=== PATIENT | female | born 1980 | race Caucasian/White ===

== ENCOUNTER 2024-03-04 01:05 | Emergency (ER) | payer BC, SELFPAY ==
[2024-03-04 01:21] VITALS: BP 142/90; PULSE 107; RESP 18; TEMP 37; O2SAT 96; BMI 40.4
--- NOTE | 2024-03-04 02:14 | ED_ITS ---
HPI - General Adult General Chief complaint: Back Injury/Pain Stated complaint: back pain Time Seen by Provider: 03/04/24 02:00 Source: patient Mode of arrival: ambulatory Limitations: no limitations History of Present Illness HPI narrative: Right posterior lower rib pain for the past day, worsening tonight. No hematuria. No fevers or trauma. Had pneumonia 6 weeks ago, still coughing. Was coughing tonight and pain worsened. Think she may ?slipped a rib out of place?. No prior history of rib fracture. No prior history of DVT or PE. Not anticoagulated. Pain radiates to the right upper quadrant somewhat. Does not radiate to the lower abdomen. No pelvic pain. Nauseated but no vomiting. Does not feel short of breath. No hemoptysis. She was treated for her pneumonia and is still using albuterol p.r.n.. Tried a small amount of Tylenol probably 200 mg at about 6 hours ago, no significant improvement in pain. Had 400 mg of ibuprofen 10 hours ago. Past medical history benign per her report, no major long-term health problems. Last menstrual period was about 10 days ago. Allergy to sertraline, no prescription medications. Nonsmoker. ROS is notable for the respiratory and flank symptoms as above, otherwise denies times 12 systems. Related Data Allergies Allergy/AdvReac Type Severity Reaction Status Date / Time sertraline (From Zoloft) Allergy Intermediate Verified 03/04/24 01:29 [facility] Social History Non-prescribed substance use: denies use service: No Exam Const: Vital Signs, click to edit/add: Vital Signs - 24 hr 03/04/24 01:21 03/04/24 04:54 Temperature 98.6 F Pulse Rate [Left P ulse Oximeter] 107 H 85 Respiratory Rate 18 16 Blood Pressure [Ri ght Upper Arm] 142/90 H 162/85 H Pulse Oximetry 96 98 Oxygen Delivery Me thod Room Air Room Air Documenting provider has reviewed patient's vital signs: yes Common normals: alert General appearance: well kempt Other: Mildly distress from pain. Friendly and cooperative. Excellent historian. Appears well nourished and well hydrated HENMT: Common normals: normocephalic Head and scalp: normocephalic Face and sinus: normal facial exam Mouth: oral and palatal mucosa normal Throat: posterior oropharynx normal Eye: Common normals: conjunctivae normal General eye: normal appearance of both eyes Conjunctiva: conjunctiva(e) normal Neck & C-Spine: Common normals: full ROM and no lymphadenopathy Chest: Common normals: inspection of chest normal and palpation of chest normal Resp: Common normals: normal respiratory effort, no use of accessory muscles and clear to auscultation bilaterally Effort & inspection: able to speak in complete sentences Auscultation: clear to auscultation bilaterally Cardio: Common normals: regular rate, regular rhythm, S1 normal heart sound, S2 normal heart sound and no murmurs Rate: regular rate Rhythm: regular rhythm Heart sounds: S1 normal and S2 normal GI: Common normals: Normal to inspection, nondistended, normoactive bowel sounds present, soft to palpation, no hepatosplenomegaly and no masses Palpation: soft and no hepatosplenomegaly Other: Mildly diffusely tender but own because it makes the pain radiate to the back. : Other: Positive right-sided CVA tenderness. No rash. Extremity: Common normals: normal to inspection, normal capillary refill and no pedal edema Neuro: Sensorium/orientation: alert Speech: speech normal Gait (neuro): normal gait Motor exam: no movement abnormalities noted Psych: Appearance: well kempt Attitude: engaged Activity/motor behavior: appropriate eye contact Insight: insight good Judgement: judgment good Skin: Common normals: no rashes or lesions noted General skin exam: no rashes or lesions noted Course Course ED Course: 44-year-old female with right posterior lower rib pain suspicious for kidney stone. Differential diagnosis also including pulmonary embolism, pleural effusion, shingles, musculoskeletal etiology, colitis, gallstone, pancreatitis, amongst many others. Dramatic presentation mostly suspicious for kidney stone. Recommend urinalysis, test. Loss obtain intra-abdominal labs, troponin and D-dimer. Toradol, oxycodone and Zofran will be given. If blood in urine, will move in to CT without contrast. Await findings and clinical response. Reevaluation(s) Time of Reevaluation #1: 05:00 Reevaluation #1: Patient did have quite a bit of improvement of her pain with the oxycodone and Toradol. I reviewed all of her lab findings with her. Everything is quite reassuring. I suspect this is either muscular strain or a little bit of pleurisy. She has a bit of fatty liver, informed of this in her discharge instructions also. Remainder of the labs are consistent with some mild fatty liver but otherwise reassuring. No signs of pulmonary embolism, acute coronary syndrome, nephrolithiasis, biliary obstruction, bowel obstruction, acute spinous process, amongst others. Counseled patient on Tylenol, Toradol and Flexeril. Prescriptions for Toradol and Flexeril given. Alarm symptoms reviewed that would warrant ED presentation. Primary care follow-up if not improving in 7-10 days. She verbalizes understanding and agreement. Written instructions provided. Vital Signs Vital signs: Initial Vital Signs Temperature 98.6 F 03/04/24 01:21 Temperature Source Temporal Artery Scan 03/04/24 01:21 Pulse Rate 107 H 03/04/24 01:21 Pulse Rhythm Regular 03/04/24 01:21 Respiratory Rate 18 03/04/24 01:21 Blood Pressure 142/90 H 03/04/24 01:21 Blood Pressure Mean 107 H 03/04/24 01:21 Blood Pressure Position Sitting 03/04/24 01:21 Pulse Oximetry 96 03/04/24 01:21 Oxygen Delivery Method Room Air 03/04/24 01:21 Vital Signs Temperature 98.6 F 03/04/24 01:21 Pulse Rate 107 H 03/04/24 01:21 Respiratory Rate 18 03/04/24 01:21 Blood Pressure 142/90 H 03/04/24 01:21 Pulse Oximetry 96 03/04/24 01:21 Oxygen Delivery Method Room Air 03/04/24 01:21 Temperature 98.6 F 03/04/24 01:21 Pulse Rate 85 03/04/24 04:54 Respiratory Rate 16 03/04/24 04:54 Blood Pressure 162/85 H 03/04/24 04:54 Pulse Oximetry 98 03/04/24 04:54 Oxygen Delivery Method Room Air 03/04/24 04:54 Medications Administered Medications: Discontinued Medications Generic Name Dose Route Start Last Admin Trade Name Freq PRN Reason Stop Dose Admin Ketorolac Tromethamine 15 mg 03/04/24 02:12 03/04/24 02:40 Ketorolac 15 Mg/Ml Inj IVP 03/04/24 02:13 15 mg ONCE ONE Administration Ondansetron HCl 4 mg 03/04/24 02:12 03/04/24 02:40 Ondansetron 2 Mg/Ml Inj IVP 03/04/24 02:13 4 mg ONCE ONE Administration Oxycodone HCl 5 mg 03/04/24 02:12 03/04/24 02:40 Oxycodone 5 Mg Tablet PO 03/04/24 02:13 5 mg ONCE ONE Administration Medical Decision Making Lab Data Lab results reviewed: Yes I reviewed the patient's lab results Lab results narrative: Labs pretty reassuring. LFTs mildly elevated consistent with fatty liver pattern, not an obstructive pattern. No significant leukocytosis. D-dimer not elevated. No hematuria or signs of urine infection. Labs: Lab Results 03/04/24 03/04/24 03/04/24 Range/Units 02:12 02:40 03:00 WBC 9.81 (4.50-11.00) K/uL RBC 4.74 (4.00-5.20) m/uL Hgb 15.0 (12.0-16.0) gm/dL Hct 45.7 (33.0-51.0) % MCV 96 (80-100) fL MCH 32 (26-34) pg MCHC 33 (32-36) gm/dL RDW Coeff of [place] 13.2 (11.5-15.5) % Plt Count 236 (140-440) K/uL Neut % (Auto) 76.8 H (42.0-72.0) % Lymph % (Auto) 17.2 L (20-44) % Garza % (Auto) 4.4 (0.0-11.0) % Eos % (Auto) 1.1 (0.0-7.0) % Baso % (Auto) 0.4 (0.0-3.0) % Neut # (Auto) 7.50 H (1.7-7.0) K/uL Lymph # (Auto) 1.70 (0.90-2.90) K/uL Garza # (Auto) 0.40 (0.00-0.90) K/UL Eos # (Auto) 0.11 (0.00-0.50) K/uL Baso # (Auto) 0.04 (0.00-0.30) K/uL Abs Immat Gran (auto) 0.01 (0.00-0.30) K/uL Imm/Tot Granulo (auto) 0.1 % D-Dimer Quant (PE/DVT) 0.41 (0.00-0.50) ug/ml Sodium 139 (135-149) mmol/L Potassium 4.2 (3.6-5.1) mmol/L Chloride 107 (96-114) mmol/L Carbon Dioxide 25 (20-32) mmol/L Anion Gap 7 (7-15) mEq/L BUN 7 (5-24) mg/dL Creatinine 0.5 (0.5-1.5) mg/dL Estimated Creat Clear 209.91 Estimated GFR 120 ml/min Glucose 129 H (60-115) mg/dL Lactate 1.4 (0.5-1.9) mmol/L Calcium 9.2 (8.4-10.6) mg/dL Total Bilirubin 0.4 (0.1-1.5) mg/dL AST 79 H (12-35) U/L ALT 94 H (4-35) U/L Alkaline Phosphatase 81 (40-150) U/L Total Protein 7.2 (6.0-8.3) g/dL Albumin 4.2 (3.3-5.0) g/dL Lipase 110 (23-300) U/L Urine Color Yellow (Yellow) Urine Appearance Cloudy A (Clear) Urine pH 5.5 (5.0-8.5) Ur Specific [place] 1.015 (1.000-1.030) Urine Protein Negative (Negative) Urine Glucose (UA) Negative (Negative) Urine Ketones Negative (Negative) Urine Blood Negative (Negative) Urine Nitrite Negative (Negative) Urine Bilirubin Negative (Negative) Urine Urobilinogen 0.2 (0.2-1.0) Ur Leukocyte Esterase Negative (Negative) Urine RBC 0-2 (0-2) Urine WBC 0-2 (0-5) Ur Squamous Epith Cells Moderate A (None-Few) Urine Bacteria Moderate A (None) Hyaline Casts Few (None-Few) Urine HCG, Qual Negative (Negative) POC Troponin I 0.00 L (0.01-0.04) ng/ml Imaging Data CT Chest/Ab/Pelvis: Attestation: I have reviewed the pertinent imaging results. My impression: Slight fatty liver but no other abnormalities. Radiologist's impression: FINDINGS: CHEST: Heart size normal. No mediastinal or hilar adenopathy or mass. No pericardial effusion. Minimal patchy ground-glass with spared intervening areas normal parenchyma in a so-called mosaic attenuation pattern. This a nonspecific finding and has multiple possible potential causes. Generally, this finding is most due to small airway disease, edema or an inflammatory process. There is no focal consolidation, infiltrate or mass. No pleural effusion or pneumothorax. ABDOMEN AND PELVIS: LIVER/BILIARY SYSTEM:Mildly prominent fatty infiltrated liver. No focal mass. Normal-appearing gallbladder.No biliary ductal dilation ADRENALS: Normal KIDNEYS, URETERS and BLADDER:The kidneys appear normal. No visible mass, calculus or hydronephrosis. The ureters and bladder as visualized appear normal. SPLEEN:Normal appearance. PANCREAS: Appears normal. RETROPERITONEUM and MESENTERY: There is no mass, adenopathy or aortic aneurysm. GASTROINTESTINAL SYSTEM: There is no evidence of diverticulitis, colitis, or mechanical obstruction. The small bowel as visualized appears normal.The appendix is not visualized but there no secondary findings of appendicitis. PELVIS: Prominent endometrium. This measures about 13 millimeters. This may be normal in a premenopausal patient without abnormal bleeding. This is especially true of the patient is in the late proliferative phase of her menstrual cycle. Follow-up as clinically appropriate. No adnexal mass.. OSSEOUS STRUCTURES and ABDOMINAL WALL: There is an age-appropriate appearance of the osseous structures.No significant abdominal wall defect. OTHER: No free fluid or free air. IMPRESSION: 1. CHEST: Minimal patchy ground-glass in a mosaic attenuation pattern. Please review the comments regarding this pattern. There is no focal consolidation, infiltrate, mass, pleural effusion or pneumothorax. 2. ABDOMEN: Mildly prominent fatty infiltrated liver. The appendix is not visualized though there are no secondary findings of appendicitis on this exam. No acute appearing finding in the abdomen 3. PELVIS: Prominent endometrium measuring about 13 millimeters. This may be normal in a premenopausal patient without abnormal bleeding, especially in the late proliferative phase of menstrual cycle. Follow-up as clinically appropriate. No adnexal mass. No free fluid. Please note that all CT scans at this facility use dose modulation, iterative reconstruction, and/or weight-based dosing when appropriate to reduce radiation dose to as low as reasonably achievable. Dictated by Francois Lane MD @ 03/04/2024 4:57:48 AM Discharge Plan Discharge Clinical Impression: Muscle strain of chest wall Patient Disposition: Home w/ Parent or Adult Condition: Improved Instructions: Chest Wall Pain (ED) Additional Instructions: As we discussed, thankfully there were no dangerous reasons for your rib pain found. No signs of a blood clot, heart attack, kidney stone, kidney infection, gallstone, pancreatitis or other abnormality. CT shows a little bit of fatty infiltration of the liver which is not uncommon. I would recommend that you have your liver enzymes recheck once a year by your primary care doctor but no interventions are needed at this time. If you would like to work on cutting out carbohydrates and increasing your exercise this would ultimately reduce your risk of developing liver disease later in life. Blood work was very reassuring as well except the slight elevation in liver enzymes but not consistent with an obstructive, dangerous process. I recommend Tylenol 1000 mg every 6 hours for the pain. I have also given her prescription for Toradol, a common anti-inflammatory pain medicine. Use this up to every 6 hours. I would recommend automatically taking the Toradol for the next 2-3 days and then weaving in the Tylenol if your pain is not controlled. For more severe pain, and especially at night I have prescribed a muscle relaxant known as cyclobenzaprine. A full tablet will likely be too strong for you during the day, consider a half tablet if needed. Half to full tablet at night if the pain is more severe and he cannot sleep. Likely heat is more helpful than ice at this stage. Muscle rubs and topical patches are absolutely safe to use as well. If you still have symptoms in another 7-10 days, I would recommend primary care follow-up to discuss physical therapy and other interventions. Avoid heavy lifting and will prolong standing until you are feeling better. But technically you are cleared to return to work and all typical duties. Activity Level: Activity as Tolerated Discharge Diet: Regular Follow Up/Referrals: Ludy Diana MD [Referring] - Stand Alone Forms: Pricing Assistant Info Instructions
[2024-03-04] MEDS: OXYCODONE 5 MG TABLET PO (02:40)
[2024-03-04] MEDS: KETOROLAC 15 MG/ML inj IVP (02:40)
[2024-03-04] MEDS: ONDANSETRON 2 MG/ML inj 4 MG IVP (02:40)
[2024-03-04 02:50] LABS: Lactate* 1.4 mmol/L (0.5-1.9)
[2024-03-04 02:53] LABS: Basophils Absolute Auto 0.04 K/uL (0.00-0.30); Basophils Percent Auto 0.4 % (0.0-3.0); Eosinophils Absolute Auto 0.11 K/uL (0.00-0.50); Eosinophils Percent Auto 1.1 % (0.0-7.0); Hematocrit 45.7 % (33.0-51.0); Immature Granulocytes Abs Auto 0.01 K/uL (0.00-0.30); Immature Granulocytes Pct Auto 0.1 %; Lymphocytes Percent Auto 17.2 % (20-44); Mean Corpuscular HGB Conc 33 gm/dL (32-36); Mean Corpuscular Hemoglobin 32 pg (26-34); Mean Corpuscular Volume 96 fL (80-100); Monocytes Percent Auto 4.4 % (0.0-11.0); Neutrophils Percent Auto 76.8 % (42.0-72.0); Platelet Count* 236 K/uL (140-440); RDW Coefficient of Variation % 13.2 % (11.5-15.5); Red Blood Count 4.74 m/uL (4.00-5.20); White Blood Count* 9.81 K/uL (4.50-11.00)
[2024-03-04 02:57] LABS: Slide Review Reflex No
[2024-03-04 03:08] LABS: Appearance Urine Cloudy (Clear); Bilirubin Urine Negative (Negative); Blood Urine Negative (Negative); Color Urine Yellow (Yellow); Glucose Urine Negative (Negative); Ketones Urine Negative (Negative); Leukocyte Esterase Urine Negative (Negative); Nitrite Urine Negative (Negative); Protein Urine Negative (Negative); Specific Gravity Urine 1.015 (1.000-1.030); Urobilinogen Urine 0.2 (0.2-1.0); pH Urine 5.5 (5.0-8.5)
[2024-03-04 03:10] LABS: Ur HCG Qualitative* Negative (Negative)
[2024-03-04 03:13] LABS: Albumin* 4.2 g/dL (3.3-5.0); Chloride* 107 mmol/L (96-114); Potassium* 4.2 mmol/L (3.6-5.1); Sodium* 139 mmol/L (135-149)
[2024-03-04 03:15] LABS: Creatinine* 0.5 mg/dL (0.5-1.5); Est. Creatinine Clearance* 209.91; Estimated Glomerular Filt Rate 120 ml/min
[2024-03-04 03:16] LABS: Alanine Aminotransferase* 94 U/L (4-35); Alkaline Phosphatase* 81 U/L (40-150); Anion Gap 7 mEq/L (7-15); Aspartate Amino Transferase* 79 U/L (12-35); Bilirubin Total* 0.4 mg/dL (0.1-1.5); Blood Urea Nitrogen* 7 mg/dL (5-24); Calcium* 9.2 mg/dL (8.4-10.6); Carbon Dioxide* 25 mmol/L (20-32); Glucose* 129 mg/dL (60-115); Lipase* 110 U/L (23-300); Total Protein* 7.2 g/dL (6.0-8.3)
[2024-03-04 03:18] LABS: D Dimer Quantitative* 0.41 ug/ml (0.00-0.50)
--- NOTE | 2024-03-04 03:21 | CRLHL7_ITS ---
For Patients: As a result of the Century Cures Act, medical imaging exams and procedure reports are released immediately into your electronic medical record. You may view this report before your referring provider. If you have questions, please contact your health care provider. INDICATION: Right flank pain. Cough since 01/23/2024. History of pneumonia. COMPARISON: None TECHNIQUE: CT examination of the chest, abdomen and pelvis was performed following the uneventful intravenous administration of 98 cc of Isovue 370. Thin section axial images were obtained from the thoracic inlet through the pubic symphysis. Oral contrast was not administered. Sagittal and coronal reformatted imaging was performed Please note that all CT scans at this facility use dose modulation, iterative reconstruction, and/or weight-based dosing when appropriate to reduce radiation dose to as low as reasonably achievable. FINDINGS: CHEST: Heart size normal. No mediastinal or hilar adenopathy or mass. No pericardial effusion. Minimal patchy ground-glass with spared intervening areas normal parenchyma in a so-called mosaic attenuation pattern. This a nonspecific finding and has multiple possible potential causes. Generally, this finding is most due to small airway disease, edema or an inflammatory process. There is no focal consolidation, infiltrate or mass. No pleural effusion or pneumothorax. ABDOMEN AND PELVIS: LIVER/BILIARY SYSTEM:Mildly prominent fatty infiltrated liver. No focal mass. Normal-appearing gallbladder.No biliary ductal dilation ADRENALS: Normal KIDNEYS, URETERS and BLADDER:The kidneys appear normal. No visible mass, calculus or hydronephrosis. The ureters and bladder as visualized appear normal. SPLEEN:Normal appearance. PANCREAS: Appears normal. RETROPERITONEUM and MESENTERY: There is no mass, adenopathy or aortic aneurysm. GASTROINTESTINAL SYSTEM: There is no evidence of diverticulitis, colitis, or mechanical obstruction. The small bowel as visualized appears normal.The appendix is not visualized but there no secondary findings of appendicitis. PELVIS: Prominent endometrium. This measures about 13 millimeters. This may be normal in a premenopausal patient without abnormal bleeding. This is especially true of the patient is in the late proliferative phase of her menstrual cycle. Follow-up as clinically appropriate. No adnexal mass.. OSSEOUS STRUCTURES and ABDOMINAL WALL: There is an age-appropriate appearance of the osseous structures.No significant abdominal wall defect. OTHER: No free fluid or free air. IMPRESSION: 1. CHEST: Minimal patchy ground-glass in a mosaic attenuation pattern. Please review the comments regarding this pattern. There is no focal consolidation, infiltrate, mass, pleural effusion or pneumothorax. 2. ABDOMEN: Mildly prominent fatty infiltrated liver. The appendix is not visualized though there are no secondary findings of appendicitis on this exam. No acute appearing finding in the abdomen 3. PELVIS: Prominent endometrium measuring about 13 millimeters. This may be normal in a premenopausal patient without abnormal bleeding, especially in the late proliferative phase of menstrual cycle. Follow-up as clinically appropriate. No adnexal mass. No free fluid. Please note that all CT scans at this facility use dose modulation, iterative reconstruction, and/or weight-based dosing when appropriate to reduce radiation dose to as low as reasonably achievable. Dictated by Francois Lane MD @ 03/04/2024 4:57:48 AM (Electronically Signed)
[2024-03-04 03:26] LABS: Bacteria Urine Moderate; Hyaline Casts Urine Few (None-Few); RBC Urine 0-2 (0-2); Squamous Epithelial Cell Urine Moderate (None-Few); WBC Urine 0-2 (0-5)
[2024-03-04 04:54] VITALS: BP 162/85; PULSE 85; RESP 16; O2SAT 98
== END 2024-03-04 05:38 | disposition home or self-care (01) ==
PROVIDERS: Emergency Provider Family Medicine
DX: S29.011A Strain of muscle and tendon of front wall of thorax, initial encounter (principal)
CPT/HCPCS: 36415; 71260; 74177; 80053; 81001; 81003; 81025; 83605; 83690; 84484; 85025; 85379; 87086; 96374; 96375; 99284; 99285; A9270; J1885; J2405; Q9967

== ENCOUNTER 2024-04-15 08:57 | Outpatient (CLI) | payer BC, SELFPAY ==
--- NOTE | 2024-04-15 09:15 | CRLHL7_ITS ---
For Patients: As a result of the Cures Act, medical imaging exams and procedure reports are released immediately into your electronic medical record. You may view this report before your referring provider. If you have questions, please contact your health care provider. ULTRASOUND-GUIDED RIGHT BREAST BIOPSY AND CLIP PLACEMENT INDICATION: RIGHT breast mass upper outer quadrant 11 o`clock position 7 cm from the nipple. Ultrasound-guided biopsy recommended. PROCEDURE: Informed consent was obtained. The benefits and risks were discussed. The risks include pain, bleeding, infection, and the possibility of an unsuccessful are nondiagnostic procedure. Clip placement and a postprocedure mammogram were also discussed. [place] protocol was followed. TIME-OUT conducted just prior to starting procedure confirmed patient identity, site/side, procedure, patient position, and availability of correct equipment. Pause for cause was performed. Utilizing sterile technique and 1 percent lidocaine for local anesthetic, a 14-gauge biopsy device was advanced was advanced into the lobulated nodule in the upper outer RIGHT breast 7 cm from the nipple at 1 o`clock position. Six passes were made. The first pass did not demonstrate any tissue. The additional five passes demonstrated tissue which was placed in formalin. The patient tolerated the biopsy well. No immediate complications. Subsequent clip placement performed without difficulty. A postprocedure mammogram is pending. IMPRESSION: Technically successful ultrasound-guided biopsy of the upper outer RIGHT breast mass. Final pathology pending. ACR not applicable Dictated by: Zach Fung MD @04/15/2024 10:38:13 AM j/Dictated by: Zach Fung MD @ 04/15/2024 10:38:00 AM (Electronically Signed)
--- NOTE | 2024-04-15 10:00 | CRLHL7_ITS ---
For Patients: As a result of the Century Cures Act, medical imaging exams and procedure reports are released immediately into your electronic medical record. You may view this report before your referring provider. If you have questions, please contact your health care provider. POST-BIOPSY RIGHT BREAST CLIP PLACEMENT INDICATION: 44-year-old female. Follow-up RIGHT breast biopsy. TECHNIQUE: CC and ML view of the RIGHT breast were obtained. FINDINGS: There is a density in the upper outer RIGHT breast 11 o`clock position 7 cm from the nipple. The postprocedure ultrasound-guided clip placement is squarely within this lesion. These findings were discussed briefly with the patient. IMPRESSION: Clip placement upper outer quadrant RIGHT breast. ACR not applicable Dictated by: Zach Fung MD @04/15/2024 10:39:43 AM j/Dictated by: Zach Fung MD @ 04/15/2024 10:39:00 AM (Electronically Signed)
== END 2024-04-15 08:58 | disposition home or self-care (01) ==
LOC: US 08:58
PROVIDERS: Visit Provider Family Medicine
DX: N63.10 Unspecified lump in the right breast, unspecified quadrant (principal); D24.1 Benign neoplasm of right breast; R92.8 Other abnormal and inconclusive findings on diagnostic imaging of breast
CPT/HCPCS: 19083; 77065; 88305; A4648; A4649